=== PATIENT | male | born 1960 | race Caucasian/White ===

== ENCOUNTER 2017-10-20 13:42 | Emergency (ER) | payer MEDICAID, OTHER ==
[~2017-10-20] VITALS: Ht 165.1 cm; Wt 79.5 kg
[~2017-10-20 13:42] MED LIST: ALBU-136 IH; PRON INH
[2017-10-20 14:15] VITALS: BP 165/94
[2017-10-20] MEDS ORDERED: ALBUTEROL SULFATE/IPRATROPIU 3 ML SOL IH ONE (14:35)
--- NOTE | 2017-10-20 14:35 | NUR ---
PATIENT PRESENTS TO ED WITH C/O COUGH, SOB X 2 WKS WITH DIZZINESS, LIGHTHEADEDNESS; DENIES N/V/D; 9 DAYS AGO FELL AND HIT HIS HEAD ON A WOODEN FRAME BED LOSS CONSIOUSNESS FOR ABOUT 15 SECONDS PER PT ;Denies any medical hx;SKIN IS PINK/WARM/DRY; AAOX4 WITH EVEN AND STEADY GAIT; LUNGS CLEAR BL; HR EVEN AND REGULAR; PATIENT STATES PAIN OF 0/10 AT THIS TIME;PATIENT POSITIONED FOR COMFORT; ER MD MADE AWARE OF PT STATUS.
--- NOTE | 2017-10-20 14:50 | NUR ---
ADMITTING DX: COLD SYMPTOMS HX: DENIES SOB; ASTHMA AT A YOUNG AGE LOC AWAKE AND ALERT SKIN TONE PINL RESPONSIVE TO [facility] ATTENDANT VERBAL COMMANDS EDUCATION PROVIDE TO PATIENT WIH ACKNOWLEDGEMENT ON HHN THERAPY AND RESPIRATORY DRUG HHN THERAPY GIVEN ORDERED ENCOURAGED PATIENT FOR DEEP BREATHING DURING THERAPY TOLERATED WELL WITHOUT INCIDENT
--- NOTE | 2017-10-20 14:52 | NUR ---
RT AT BEDSIDE.
[2017-10-20] MEDS ORDERED: NACL 0.9% 1,000 ML IV ONE ×3 (15:00→17:35)
[2017-10-20] MEDS ORDERED: methylPREDNISolone SS 125 MG/2 ML VIAL IVP ONE (15:00)
[2017-10-20 15:17] LABS: BASOPHILS # (AUTO) 0.1 K/uL (0.00-0.22); BASOPHILS % (AUTO) 1.4 % (0.0-2.0); EOSINOPHILS # (AUTO) 0.1 K/uL (0-0.4); EOSINOPHILS % (AUTO) 1.3 % (0.0-4.0); HEMOGLOBIN 13.6 g/dL (12.0-18.0); LYMPHOCYTES # (AUTO) 2.5 K/uL (2.0-11.5); LYMPHOCYTES % (AUTO) 29.2 % (20.5-51.1); MEAN CORPUSCULAR HEMOGLOBIN 32 pg (27-31); MEAN CORPUSCULAR HGB CONC 33 g/dL (33-37); MEAN CORPUSCULAR VOLUME 95 fL (80-94); MONOCYTES # (AUTO) 0.5 K/uL (0.8-1.0); MONOCYTES % (AUTO) 6.1 % (1.7-9.3); NEUTROPHILS # (AUTO) 5.3 K/uL (1.8-7.7); PLATELET COUNT (AUTO) 181 K/uL (140-450); RED BLOOD CELL COUNT(AUTO) 4.31 MIL/uL (4.20-6.10); RED CELL DISTRIBUTION WIDTH 12.8 % (11.6-13.7); WHITE BLOOD COUNT (AUTO) 8.5 K/uL (4.8-10.8)
[2017-10-20 15:28] LABS: ANION GAP 15.2 (8-16); CARBON DIOXIDE 27.8 mmol/L (21-32); CREATININE 0.9 mg/dL (0.7-1.3)
[2017-10-20 15:36] LABS: ALBUMIN 3.5 g/dL (3.4-5.0); TOTAL BILIRUBIN 0.4 mg/dL (0.0-1.0)
--- NOTE | 2017-10-20 16:25 | NUR ---
JAY LOAIZA AT BEDSIDE.
[2017-10-20] MEDS ORDERED: cefTRIAXone 1,000 MG VIAL ONE (16:32)
--- NOTE | 2017-10-20 17:05 | NUR ---
Patient appears to be resting comfortably in bed. VSS.
[2017-10-20 17:59] VITALS: BP 156/78
--- NOTE | 2017-10-20 17:59 | NUR ---
Patient discharged with v/s stable. Written and verbal after care instructions given and explained. Patient alert, oriented and verbalized understanding of instructions. Ambulatory with steady gait. All questions addressed prior to discharge. ID band removed. Patient advised to follow up with PMD. Rx of Promethazine DM 6.25mg-15mg, Predinsone 20mg, Azithromycin 250mg, OVAR 80mcg/actuation, Albuterol given. Patient educated on indication of medication including possible reaction and side effects. Opportunity to ask questions provided and answered.
== END 2017-10-20 17:59 | disposition home or self-care (01) ==
LOC: MED 13:42
DX: H66.91 Otitis media, unspecified, right ear (principal); J98.01 Acute bronchospasm; E86.0 Dehydration; J45.909 Unspecified asthma, uncomplicated; I10 Essential (primary) hypertension
CPT/HCPCS: 36415; 70450; 71045; 80053; 85025; 87804; 94640; 96365; 96367; 99285; J0696; J2930; J7030; J7060; J7620

== ENCOUNTER 2018-10-14 17:06 | Inpatient (IN) | payer OTHER ==
[~2018-10-14] VITALS: Ht 177.8 cm; Wt 79.8 kg
[2018-10-14 17:11] VITALS: BP 148/96
--- NOTE | 2018-10-14 17:15 | NUR ---
57 YO MALE BIB SELF FOR CHEST PAIN ON INSPIRATION WITH COUGH, PT IS AA0X4, VSS AT THIS TIME, EVEN AND UNLABORED BREATHING AT THIS TIME, NO RADIATING ARM PAIN, PT STATES HE HAS BEEN MORE TIRED LATELY AND HAS BEEN EATING MUCH HE USE TO. PT BED DOWN, BEDRAIL UP X 1, ER AWARE AND NOTIFIED OF PT STATUS. PMH: ASTHMA, GASTROBYPASS 1995, BACK SURGERY 1993 RX; DENIES
[2018-10-14] MEDS ORDERED: ASPIRIN 81 MG TAB.CHEW PO ONE (17:30)
--- NOTE | 2018-10-14 17:30 | NUR ---
Patient being evaluated by physician at bedside.
--- NOTE | 2018-10-14 18:18 | NUR ---
rad at bedside
[2018-10-14 18:28] LABS: BASOPHILS # (AUTO) 0.1 K/uL (0.00-0.22); BASOPHILS % (AUTO) 0.6 % (0.0-2.0); EOSINOPHILS # (AUTO) 0.3 K/uL (0-0.4); EOSINOPHILS % (AUTO) 4.1 % (0.0-4.0); HEMATOCRIT 39.2 % (36-52); HEMOGLOBIN 12.8 g/dL (12.0-18.0); LYMPHOCYTES # (AUTO) 1.7 K/uL (2.0-11.5); MEAN CORPUSCULAR HEMOGLOBIN 32 pg (27-31); MEAN CORPUSCULAR HGB CONC 33 g/dL (33-37); MEAN CORPUSCULAR VOLUME 97.8 fL (80-94); MONOCYTES # (AUTO) 0.7 K/uL (0.8-1.0); MONOCYTES % (AUTO) 8.5 % (1.7-9.3); NEUTROPHILS # (AUTO) 5.5 K/uL (1.8-7.7); NEUTROPHILS % (AUTO) 66.8 % (42.2-75.2); PLATELET COUNT (AUTO) 333 K/uL (140-450); RED BLOOD CELL COUNT(AUTO) 4.01 MIL/uL (4.20-6.10); RED CELL DISTRIBUTION WIDTH 13.3 % (11.6-13.7); WHITE BLOOD COUNT (AUTO) 8.3 K/uL (4.8-10.8)
[2018-10-14 18:45] LABS: PROTHROMBIN TIME 10.3 secs (10.8-13.4)
[2018-10-14 18:48] LABS: ANION GAP 12.2 (8-16); POTASSIUM 4.2 mmol/L (3.5-5.1)
[2018-10-14 18:49] LABS: ALBUMIN 3.5 g/dL (3.4-5.0); CREATININE 0.9 mg/dL (0.7-1.3); TOTAL BILIRUBIN 0.5 mg/dL (0.0-1.0)
[2018-10-14 18:57] LABS: CREATINE KINASE MB 3.5 ng/mL (0-3.6)
--- NOTE | 2018-10-14 19:10 | NUR ---
PT BACK FROM CT
[2018-10-14] MEDS ORDERED: ASPIRIN 325 MG TAB PO ONE (19:15)
--- NOTE | 2018-10-14 19:20 | NUR ---
RECEIVED REPORT FROM AM NURSE. PT LAYING IN BED, SPO2 96% ON O2 2L NC, RR 18 EVEN AND UNLABORED. PT REPORTS 5/10 TOLERABLE CP AT THIS TIME. ALL NEEDS MET.
--- NOTE | 2018-10-14 20:15 | NUR ---
Pt report given to CATHY YING. Transfer of care at this time.
[2018-10-14] MEDS ORDERED: NACL 0.9% 1,000 ML IV SCH (20:58)
[2018-10-14] MEDS ORDERED: ONDANSETRON 4 MG/2 ML VIAL IM/IVP PRN (21:00)
[2018-10-14] MEDS ORDERED: DOCUSATE SODIUM 100 MG GELCAP PO PRN (21:00)
[2018-10-14] MEDS ORDERED: HYDROcodone/APAP 5/325 MG 1 TAB TAB PO PRN (21:00)
[2018-10-14] MEDS ORDERED: ACETAMINOPHEN 325 MG TAB PO PRN (21:00)
--- NOTE | 2018-10-14 21:50 | NUR ---
PER PET HOUSE SITTER AT [facility], PT NEEDS TO BE TRANSFERED TO HIGHER LEVEL OF CARE. SAFETY MEASURES IN PLACE. WILL CONTINUE TO MONITOR.
--- NOTE | 2018-10-14 21:58 | NUR ---
WAITING FOR CONFIRMATION TO PLACEMENT FOR PT. ER MD MADE AWARE. WILL CONTINUE TO MONITOR.
--- NOTE | 2018-10-14 22:02 | NUR ---
PT SITTING UP EATING DINNER. BED IN LOWER LOCKED POSITION; BEDRAILS UP X2.
--- NOTE | 2018-10-14 22:22 | NUR ---
RECEIVED REPORT FROM APPOINTMENT MANAGERCATHY GIBSON FOR CONTINUITY OF CARE. PT IS A/OX4 ON 2L O2 VIA NASAL CANNULA. PT IS ABLE TO MAKE NEEDS KNOWN, ABLE TO FOLLOW COMMANDS. PT AMBULATES WITH ASSIST AND SKIN IS INTACT. PT HAS A 20G IV TO RIGHT AC AND AN 18G IV TO LEFT AC, BOTH ASYMPTOMATIC AND INTACT. VITAL SIGNS WITHIN NORMAL LIMITS. PT STABLE, DENIES PAIN, NO SIGNS OF DISTRESS NOTED AT THIS TIME. PT POSITIONED FOR COMFORT. BED IN LOWEST POSITION, BED ALARM ON. CALL LIGHT WITHIN REACH, WILL CONTINUE TO MONITOR.
--- NOTE | 2018-10-14 22:22 | NUR ---
Patient will be admitted to care of Dr. Barrera. Admited to Tele. Pt transported to floor via gurny by RN and EMT Will go to room 107B. Belongings list completed. Report to Yoly MORGAN.
[2018-10-14] MEDS ORDERED: hePARIN / DEXT 5% PREMIX 250 ML IV SCH (22:25)
[2018-10-14] MEDS ORDERED: HEPARIN PER PHARMACY MC PRN (22:25)
[2018-10-14] MEDS ORDERED: NITROGLYCERIN 0.4 MG TAB SL PRN (22:40)
[2018-10-14 23:00] VITALS: BP 140/94
--- NOTE | 2018-10-14 23:35 | NUR ---
HEPARIN DRIP STARTED WITH CATHY MEJIA WITNESS. PT TOLERATING WELL.
[2018-10-14] MEDS: hePARIN / DEXT 5% PREMIX 250 ML IV SCH (23:36)
--- NOTE | 2018-10-14 23:50 | NUR ---
IV KEPT BEEPING AND IT WAS THE HEPARIN IV. STARTED NEW 20G IV TO RIGHT FOREARM AND CONNECTED THERE. PT TOLERATING WELL.
[2018-10-15] VITALS (11 sets, daily range): BP systolic 95–152; BP diastolic 60–109
--- NOTE | 2018-10-15 | NUR ---
VITAL SIGNS WITHIN NORMAL LIMITS. PT BREATHING LESS LABORED. PT STABLE, DENIES PAIN, NO SIGNS OF DISTRESS NOTED AT THIS TIME. PT POSITIONED FOR COMFORT. BED IN LOWEST POSITION, BED ALARM ON. CALL LIGHT WITHIN REACH, WILL CONTINUE TO MONITOR.
[2018-10-15] MEDS: ZOLPIDEM 5 MG TAB PO PRN ×2 (00:09→21:52)
--- NOTE | 2018-10-15 01:20 | NUR ---
STAT EKG completed and results read to Dr. Nye. Patient is sweating appears to be diaphoretic and respiratory rate is elevated. Patients heart rate is elevated and saturation is 98 spo2 on 2L nasal canula. RN is notified and we will continue to monitor patient closely.
--- NOTE | 2018-10-15 01:25 | NUR ---
PT PULLED OUT IV WITH HEPARIN INFUSING. CONNECTED TO 18G ON LEFT FOREARM AND CONTINUED.
--- NOTE | 2018-10-15 01:35 | NUR ---
ASKED DR FONSECA TO CHECK OUT PT BECAUSE PT IS PALE, DIAPHORETIC, SOB, WITH RETRACTIONS, AND TACHYCARDIC. DR FONSECA WILL SEE IN A FEW MINUTES. RUBY LARA IS AT BEDSIDE DOING EKG.
--- NOTE | 2018-10-15 01:45 | NUR ---
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 DR FONSECA AWARE AND TRIED TO ASK HIM ABOUT IT BUT THAT IS ALL PT KNOWS.
[2018-10-15] MEDS: MORPHINE SULFATE 4 MG/ML SYR IVP PRN (01:52)
[2018-10-15] MEDS: FUROSEMIDE 40 MG/4 ML VIAL IVP SCH ×3 (01:53→21:21)
--- NOTE | 2018-10-15 02:05 | NUR ---
SPOKE TO DR FONSECA AGAIN ABOUT NEW EKG BEING IN CHARGE AND ABOUT TRANSFERRING PT TO ICU. HE SAID HE WILL ORDER ANOTHER LASIX DOSE AND TO JUST KEEP AN EYE ON HIM. WILL KEEP MONITORING PT CLOSELY.
[2018-10-15] MEDS ORDERED: FUROSEMIDE 40 MG/4 ML VIAL IVP SCH (02:15)
[2018-10-15] MEDS ORDERED: PNEUMOCOCCAL VACCINE 23 MCG/0.5 ML VIAL IMVAC SCH (02:55)
[2018-10-15] MEDS ORDERED: LABETALOL 100 MG/20 ML VIAL IV SCH (03:35)
[2018-10-15] MEDS ORDERED: LABETALOL 100 MG/20 ML VIAL ONE (04:42)
--- NOTE | 2018-10-15 04:45 | NUR ---
BP 152/109 HR 104, AND PT SLIGHTLY LESS DIAPHORETIC, DR FONSECA SAID TO GIVE ORDERED LABETALOL. ADMINISTERED LABETALOL OVER 2 MINUTES AND FLUSHED IV SLOWLY. PT VERBALIZED UNDERSTANDING OF MEDICATION AND TOLERATED WELL.
--- NOTE | 2018-10-15 05:00 | NUR ---
SPOKE TO DR FONSECA ABOUT PT V/S BP 100/62, HEART RATE 47-67 WITH SKIPPED BEATS ON MONITOR. DR ASKED IF PT IS AROUSABLE, PT IS AROUSABLE BUT LETHARGIC AND GOES BACK TO SLEEP QUICKLY, DR SAID THAT'S KIND OF HOW HE'S BEEN ALL NIGHT AND TO JUST KEEP MONITORING. DR CAME TO CHECK MONITOR AND PT. WILL CONTINUE TO MONITOR PT CLOSELY.
--- NOTE | 2018-10-15 05:09 | NUR ---
DR FONSECA SAID TO HOLD ALL MORNING BP MEDS UNTIL BP IS BACK TO NORMAL/PT'S BASELINE SINCE ADMITTED. WILL ENDORSE TO DAY SHIFT RN.
[2018-10-15 06:18] LABS: BASOPHILS % (AUTO) 0.5 % (0.0-2.0); EOSINOPHILS # (AUTO) 0.4 K/uL (0-0.4); EOSINOPHILS % (AUTO) 4.8 % (0.0-4.0); HEMATOCRIT 36.4 % (36-52); HEMOGLOBIN 11.6 g/dL (12.0-18.0); LYMPHOCYTES # (AUTO) 1.7 K/uL (2.0-11.5); LYMPHOCYTES % (AUTO) 20.7 % (20.5-51.1); MEAN CORPUSCULAR HEMOGLOBIN 32 pg (27-31); MEAN CORPUSCULAR HGB CONC 32 g/dL (33-37); MEAN CORPUSCULAR VOLUME 98.9 fL (80-94); MONOCYTES # (AUTO) 0.7 K/uL (0.8-1.0); MONOCYTES % (AUTO) 8.3 % (1.7-9.3); NEUTROPHILS # (AUTO) 5.5 K/uL (1.8-7.7); NEUTROPHILS % (AUTO) 65.7 % (42.2-75.2); PLATELET COUNT (AUTO) 321 K/uL (140-450); RED BLOOD CELL COUNT(AUTO) 3.68 MIL/uL (4.20-6.10); RED CELL DISTRIBUTION WIDTH 13.3 % (11.6-13.7); WHITE BLOOD COUNT (AUTO) 8.4 K/uL (4.8-10.8)
--- NOTE | 2018-10-15 07:05 | NUR ---
ENDORSED PT TO DAY SHIFT CATHY MULLEN FOR CONTINUITY OF CARE. PT IN STABLE CONDITION.
--- NOTE | 2018-10-15 07:06 | NUR ---
RECEIVED REPORT FROM PRODUCTION MINER NURSE. PATIENT SITTING IN BED. NO DISTRESS NOTED. DENIES ANY CHEST PAIN AT THIS TIME. RESPIRATIONS EVEN, UNLABORED, ON O2 4L/MIN VIA NC. AAOX4, CALM, COOPERATIVE, SKIN COLOR APPROPRIATE TO ETHNICITY, WARM TO TOUCH. SKIN IS INTACT. IV SITES INTACT, PATENT. HEPARIN DRIP CURRENTLY INFUSING AT 14 ML/HR (1400 UNITS/HR) PER PHARMACY DOSING. SAFETY MEASURES IN PLACE, CALL LIGHT WITHIN REACH. WILL CONTINUE TO MONITOR.
--- NOTE | 2018-10-15 07:28 | NUR ---
STUDIO COORDINATOR ASKED ME TO CALL ICU FOR BED. CALLED [facility] NURSE TO LET HIM KNOW ABOUT STAT TRANSFER ORDER, HE SAID HE WILL CALL [facility] NURSE AND I CAN CALL ICU. CALLED ICU AND SPOKE TO TOSIN, TOLD HER WHAT MATT SAID AND SHE TOLD ME PT CAN HAVE ICU BED 5 WHEN ART GILDER NURSE GETS HERE. INFORMED STUDIO COORDINATOR'S BILLY, AND CATHY MULLEN.
--- NOTE | 2018-10-15 08:25 | NUR ---
PATIENT HAS BEEN SCREENED AND CATEGORIZED MODERATE NUTRITION RISK. PATIENT WILL BE SEEN WITHIN 3-5 DAYS OF ADMISSION. 10/17/18 10/19/[address]
--- NOTE | 2018-10-15 08:32 | NUR ---
ICU ADMISSION FROM TELEMETRY. PATIENT TRANSFERRED TO ICU BED, HOOKED TO CARDIAC MONITORS AND OXYGEN 4L/MIN VIA NASAL CANNULA. INTRODUCED TO COMPUTER SCIENCE PROFESSOR, CALL RAZA WITHIN REACH, BED AT LOW POSITION, HEAD UP 30 DEGREES, EXPECTED PROCEDURES, MEDICATIONS AND SIDE EFFECTS EXPLAINED
[2018-10-15 08:40] LABS: MAGNESIUM 1.9 mg/dL (1.8-2.4); PHOSPHORUS 4.5 mg/dL (2.5-4.9)
[2018-10-15 08:47] LABS: ANION GAP 14.3 (8-16); CARBON DIOXIDE 28.2 mmol/L (21-32); POTASSIUM 3.5 mmol/L (3.5-5.1)
[2018-10-15 08:48] LABS: CREATININE 0.9 mg/dL (0.7-1.3)
--- NOTE | 2018-10-15 08:54 | NUR ---
PATIENT IN BED WITH HEAD 30 DEGREES UP. ALERT ORIENTEDX4, NO COMPLAINTS OF PAIN, ON NASAL CANULA O2 4L/MIN. SO2 97%, EXERTIONAL DYSPNEA NOTED,CLEAR BREATH SOUNDS ON ALL LUNG MARCIAL, RR 26CPM, SINUS RHYTHM 76BPM ON MONITOR, SOFT ABDOMEN, NORMAL BOWEL SOUNDS, SKIN INTACT, WITH PERIPHERAL LINES GAUGE 18 AT LEFT AC HEPARIN 1,400 UNITS/HR INFUSING, GAUGE 20 RIGHT AC SALINE LOCKED-SITES ARE ASYMPTOMATIC,
--- NOTE | 2018-10-15 08:56 | NUR ---
TRANSFERRED PATIENT TO ICU SAFELY. GAVE REPORT TO ICU NURSE FOR CONTINUITY OF CARE. PATIENT IN STABLE CONDITION.
--- NOTE | 2018-10-15 09:00 | NUR ---
BEDSIDE REPORT RECEIVED FROM RECORD CENTER COORDINATOR
--- NOTE | 2018-10-15 09:05 | NUR ---
PER LOSS PREVENTION SUPERVISOR PAZ PATIENT'S PTT 57.7-NO CHANGE IN HEPARIN DRIP PER PROTOCOL. DR. CROCKER MADE AWARE
--- NOTE | 2018-10-15 09:20 | NUR ---
PATIENT'S BLOOD PRESSURE 120/80 WILL GIVE SCHEDULED LASIX IV, WILL HOLD FOR NOW THE ANTIHYPERTENSIVES AND RECHECK BP IN AN HOUR AND WILL GIVE IF BP DID NOT DROP FROM BASELINE
[2018-10-15] MEDS: METOPROLOL 25 MG TAB PO SCH ×2 (10:00→21:00)
[2018-10-15] MEDS: LISINOPRIL 5 MG TAB PO SCH (10:00)
--- NOTE | 2018-10-15 10:28 | NUR ---
TELEPHONED RESIDENT EXT. [id number] CROCKER INFORMED THIS RN HOLDING 9 AM BLOOD PRESSURE MEDICATIONS BP CURRENTLY 90s-OK TO HOLD PER PHYSICIAN. ALSO INFORMED PATIENT ON ASPIRIN AND HEPARIN DIP.
--- NOTE | 2018-10-15 10:45 | NUR ---
PATIENT REFUSED INVENTORY OF HIS BELONGINGS . HE HAS 2 CLEAR PLASTIC BAGS THAT HAS CLOTHES INSIDE. ACCORDING TO PATIENT HE HAS "WALLET INSIDE" BUT SAID "NO" WHEN INFORMED VALUABLES NEED TO BE SUBMITTED TO [facility]. PER PATIENT "IT HAPPENED TO ME BEFORE THAT MY WALLET WAS SENT TO [facility] AND GOT LOST". RN WILL ICU CN ALSO AT BEDSIDE AND AWARE
[2018-10-15] MEDS ORDERED: ALBUTEROL SULFATE/IPRATROPIU 3 ML SOL IH PRN (10:55)
[2018-10-15] MEDS: ASPIRIN 81 MG TAB.CHEW PO SCH (10:58)
[2018-10-15] MEDS ORDERED: POTASSIUM CHLORIDE 10 MEQ TABER PO SCH (11:00)
--- NOTE | 2018-10-15 11:10 | NUR ---
10/14/18 0800 POC REVIEWED, CONTINUE WITH CURRENT POC. SALIMA
--- NOTE | 2018-10-15 11:10 | NUR ---
DR. LAMA HERE FOR ROUNDS
--- NOTE | 2018-10-15 11:25 | NUR ---
MEDICAL RECORDS MANAGER AT BEDSIDE FOR ECHO
[2018-10-15] MEDS ORDERED: MAG SULF 2000 MG/WATER PREMIX 50 ML IV SCH (11:30)
--- NOTE | 2018-10-15 13:04 | NUR ---
RECEIVED PTT CRITICAL 55.2, PER PROTOCOL, NO CHANGE. WILL CONTINUE CURRENT RATE.
--- NOTE | 2018-10-15 13:40 | NUR ---
informed RT Bill of order for incentive spirometer
--- NOTE | 2018-10-15 14:12 | NUR ---
DR. CROCKER HERE. MADE AWARE PATIENT IS VERBALIZING "FEELING ANXIOUS" "WANTS TO SLEEP" INFORMED PHYSICIAN OF CURRENT BP 95/60 AND SUGGESTED FOR P.O. ATIVAN. PER DR. CROCKER OK TO GIVE PRN ATIVAN 1 MG IV
[2018-10-15] MEDS: LORazepam 2 MG/ML VIAL IM/IVP PRN ×2 (14:14→19:27)
--- NOTE | 2018-10-15 15:00 | NUR ---
NOTED PATIENT SLEEPING NOW AFTER THE ATIVAN. WILL CONTINUE TO MONITOR
--- NOTE | 2018-10-15 17:00 | NUR ---
PATIENT SAT IN CHAIR PER HIS REQUEST. PATIENT WAS ABLE TO DO IT INDEPENDENTLY AND RN ON STANDBY ASSIST. PATIENT ABLE TO WASH HIMSELF
[2018-10-15 17:13] LABS: APPEARANCE,URINE CLEAR (CLEAR); COLOR,URINE YELLOW (YELLOW); PH,URINE 5.5 (5.0-9.0)
[2018-10-15 17:14] LABS: BILIRUBIN,URINE NEGATIVE (NEGATIVE); BLOOD, URINE 1+ (NEGATIVE); LEUKOCYTE ESTERASE ,URINE NEGATIVE (NEGATIVE); NITRITE, URINE NEGATIVE (NEGATIVE); RBC,URINE 3-10 (FEW) /HPF (0-5); UGLUCOSE NEGATIVE (NEGATIVE); WBC,URINE 0-5 (RARE) /HPF (0-5)
--- NOTE | 2018-10-15 17:30 | NUR ---
PATIENT BACK TO BED, RN ON STANDBY ASSIST. PATIENT VERBALIZED HE IS "SLEEPY". KEPT HEAD OF BED UP 30 DEGREES, BED LOW POSITION, CALL RAZA WITHIN REACH. PATIENT SO2 100% O2 DOWN TO 3L/MIN VIA NASAL CANNULA. PATIENT ABLE TO DO INCENTIVE SPIROMETRY REACHING 1,000
[2018-10-15 18:18] LABS: BARBITURATE, URINE NEGATIVE ng/ml (NEG <=200); BENZODIAZEPINE, URINE NEGATIVE ng/mL (NEG <=200); CANNABINOID, URINE POSITIVE ng/mL (NEG <=50); COCAINE, URINE NEGATIVE ng/mL (NEG <=300); OPIATE, URINE NEGATIVE ng/mL (NEG <=2000); PHENCYCLIDINE SCREEN,URINE NEGATIVE ng/mL (NEG <=25)
[2018-10-15] MEDS: hePARIN / DEXT 5% PREMIX 250 ML IV SCH (18:37)
--- NOTE | 2018-10-15 19:03 | NUR ---
REPORT GIVEN TO NIGHT RN
--- NOTE | 2018-10-15 19:15 | NUR ---
RECEIVED BEDSIDE REPORT FROM MORNING NURSE. PATIENT AAOX4, ABLE TO FOLLOW COMMANDS. ON 4L/M VIA NC, NO ACUTE RESPIRATORY DISTRESS NOTED. DENIES ANY PAIN AT THIS TIME. SR WITH BBB ON THE MONITOR. PERIPHERAL LINE TO LEFT FOREARM WITH HEPARIN DRIP 1400 UNITS/HR. SKIN IS WARM TO TOUCH AND INTACT. HOB ELEVATED, BED IN LOW POSITION, CALL LIGHT WITHIN REACH. WILL CONTINUE TO MONITOR
--- NOTE | 2018-10-15 19:30 | NUR ---
ADMINISTERED PRN ATIVAN ORDERED DUE TO RESTLESSNESS. DENIES CHEST PAIN AT THIS TIME. NO ACUTE DISTRESS NOTED.
[2018-10-15] MEDS ORDERED: SIMVASTATIN 20 MG TAB PO SCH ×2 (21:00)
--- NOTE | 2018-10-15 21:00 | NUR ---
HEPARIN SUBQ STARTED PER DR Natalee GONZALEZ'S ORDER; HEPARIN DRIP DC'D AT 2030
--- NOTE | 2018-10-15 21:30 | NUR ---
ADMINISTERED SCHEDULED MEDICATIONS ORDERED. TOLERATED WELL. NO ACUTE DISTRESS NOTED. O2 SAT ABOVE 95% WITH O2 3L/M VIA NC. DENIES CHEST PAIN AT THIS TIME. WILL CONTINUE TO MONITOR.
--- NOTE | 2018-10-15 22:00 | NUR ---
PATIENT REQUEST SLEEPING MEDICATIONS DUE TO UNABLE TO SLEEP AT THIS TIME. ADMINISTERED PRN AMBIEN ORDERED. DENIES PAIN. WILL CONTINUE TO MONITOR.
[2018-10-16] VITALS: BP 132/91
--- NOTE | 2018-10-16 | NUR ---
PATIENT IN ASLEEP AT THIS TIME, AROUSABLE TO VOICE. DENIES PAIN. NO ACUTE DISTRESS NOTED. WILL CONTINUE TO MONITOR.
[2018-10-16 02:00] VITALS: BP 138/91
--- NOTE | 2018-10-16 02:00 | NUR ---
NO ACUTE DISTRESS NOTED. NO PAIN NOTED. WILL CONTINUE TO MONITOR.
[2018-10-16 04:00] VITALS: BP 140/79
[2018-10-16] MEDS: MORPHINE SULFATE 4 MG/ML SYR IVP PRN (04:38)
--- NOTE | 2018-10-16 04:40 | NUR ---
PATIENT COMPLAINT ABOUT GENERALIZED BODY PAIN 04/14, ADMINISTERED PRN MORPHINE ORDERED. WILL CONTINUE TO MONITOR.
--- NOTE | 2018-10-16 05:50 | NUR ---
PATIENT IN ASLEEP AT THIS TIME. NO ACUTE DISTRESS NOTED. VSS WITH O2 3L/M VIA NC. WILL CONTINUE TO MONITOR.
[2018-10-16 05:58] LABS: BASOPHILS # (AUTO) 0.1 K/uL (0.00-0.22); BASOPHILS % (AUTO) 0.7 % (0.0-2.0); EOSINOPHILS # (AUTO) 0.5 K/uL (0-0.4); EOSINOPHILS % (AUTO) 5.9 % (0.0-4.0); HEMATOCRIT 37.2 % (36-52); HEMOGLOBIN 11.9 g/dL (12.0-18.0); LYMPHOCYTES # (AUTO) 1.7 K/uL (2.0-11.5); LYMPHOCYTES % (AUTO) 18.1 % (20.5-51.1); MEAN CORPUSCULAR HEMOGLOBIN 31 pg (27-31); MEAN CORPUSCULAR HGB CONC 32 g/dL (33-37); MEAN CORPUSCULAR VOLUME 97.6 fL (80-94); MONOCYTES # (AUTO) 0.9 K/uL (0.8-1.0); MONOCYTES % (AUTO) 9.8 % (1.7-9.3); NEUTROPHILS % (AUTO) 65.5 % (42.2-75.2); PLATELET COUNT (AUTO) 324 K/uL (140-450); RED BLOOD CELL COUNT(AUTO) 3.81 MIL/uL (4.20-6.10); RED CELL DISTRIBUTION WIDTH 13.3 % (11.6-13.7); WHITE BLOOD COUNT (AUTO) 9.2 K/uL (4.8-10.8)
[2018-10-16 06:00] VITALS: BP 127/73
[2018-10-16 07:18] LABS: ANION GAP 12.8 (8-16); CREATININE 0.8 mg/dL (0.7-1.3); POTASSIUM 3.8 mmol/L (3.5-5.1)
[2018-10-16 08:00] VITALS: BP 122/76
[2018-10-16 08:05] LABS: MAGNESIUM 2.3 mg/dL (1.8-2.4)
[2018-10-16] MEDS: ASPIRIN 81 MG TAB.CHEW PO SCH (08:51)
[2018-10-16] MEDS: FUROSEMIDE 40 MG/4 ML VIAL IVP SCH (08:51)
[2018-10-16] MEDS: LISINOPRIL 5 MG TAB PO SCH (08:51)
[2018-10-16] MEDS: METOPROLOL 25 MG TAB PO SCH (08:51)
[2018-10-16 09:02] LABS: TRANSFERRIN 228 mg/dL (200-370)
--- NOTE | 2018-10-16 09:20 | NUR ---
BEDSIDE REPORT GIVEN TO EV MORGAN. TRANSFERRED PT TO 104 A. ALL PERSONAL BELONGINGS WITH PT.
--- NOTE | 2018-10-16 09:25 | NUR ---
RECEIVED PT FROM ICU NURSE, JOLIE, PT IS AWAKE AND ALERT WITH IV LINE ON THE RT AND LEFT FA BOT G. 22 ON SALINE LOCK, PT DENIES PAIN AND NO SOB NOTED. PT IS ON TELE MONITORING. WILL CONTINUE TO MONITOR PT.
[2018-10-16 09:30] VITALS: BP 128/75
[2018-10-16] MEDS ORDERED: PROBIOTIC SCREEN 1 EA MISC MC PRN (09:30)
--- NOTE | 2018-10-16 11:48 | NUR ---
CAME TO PT'S ROOM AND FOUND OUT THAT PT ELOPED, CALLED MARLYS FROM [facility] AND REPORTED THE INCIDENT, CHARGE NURSE, INGRID INFORMED.
[2018-10-16 12:17] LABS: FERRITIN 133 ng/mL (30-400); FOLIC ACID > 20.00 ng/mL (>3.0)
--- NOTE | 2018-10-16 12:45 | NUR ---
CHARGE NURSE INGRID SAID THAT THE PT CAME BACK AND IS IN THE FRONT LOBBY.
--- NOTE | 2018-10-16 12:55 | NUR ---
PT IS SEATED IN THE FRONT LOBBY AND DR. CROCKER IS BESIDE AND TALKING TO PT. PT IS ALERT AND RESPONDING APPROPRIATELY TO MD. IV LINES WERE REMOVED AND PT WAS TRANSPORTED TO ER VIA WHEELCHAIR PER DR. CROCKER'S ORDER.
[2018-10-16] MEDS ORDERED: LORazepam 2 MG/ML VIAL IVP SCH (16:45)
== END 2018-10-16 11:48 | disposition left against medical advice (07) | DRG 194 ==
LOC: MED 17:06 → MTU 21:01 → MIC 10-15 09:36 → MTU 10-16 09:15
PROVIDERS: ADMIT General Practice; ATTEND General Practice
DX: I11.0 Hypertensive heart disease with heart failure (principal); I21.4 Non-ST elevation (NSTEMI) myocardial infarction; J96.01 Acute respiratory failure with hypoxia; I50.43 Acute on chronic combined systolic (congestive) and diastolic (congestive) heart failure; I24.9 Acute ischemic heart disease, unspecified; J45.909 Unspecified asthma, uncomplicated; D53.9 Nutritional anemia, unspecified; F15.10 Other stimulant abuse, uncomplicated; F11.10 Opioid abuse, uncomplicated; I44.7 Left bundle-branch block, unspecified; Z53.21 Procedure and treatment not carried out due to patient leaving prior to being seen by health care provider; Z79.899 Other long term (current) drug therapy; Z98.84 Bariatric surgery status; Z79.51 Long term (current) use of inhaled steroids; Z91.19 Patient's noncompliance with other medical treatment and regimen
CPT/HCPCS: 36415; 71045; 71275; 80048; 80053; 80305; 81001; 82150; 82550; 82553; 82607; 82728; 82746; 83036; 83540; 83690; 83735; 83880; 84100; 84439; 84443; 84484; 85025; 85045; 85610; 85730; 87081; 87804; 93005; 94640; 99285; J1644; J1940; J2060; J2270; J3475; J3490; J7030; J7620; Q9967

== ENCOUNTER 2018-10-16 13:31 | Inpatient (IN) | payer OTHER ==
[~2018-10-16] VITALS: Ht 167.6 cm; Wt 72.1 kg
[2018-10-16 13:40] VITALS: BP 100/51
[2018-10-16] MEDS ORDERED: HYDROcodone/APAP 7.5/325 MG 1 TAB PO PRN (14:45)
[2018-10-16] MEDS ORDERED: ACETAMINOPHEN 325 MG TAB PO PRN (14:45)
[2018-10-16] MEDS ORDERED: ONDANSETRON 4 MG/2 ML VIAL IVP PRN (14:45)
[2018-10-16 15:08] LABS: BASOPHILS % (AUTO) 0.5 % (0.0-2.0); EOSINOPHILS # (AUTO) 0.3 K/uL (0-0.4); EOSINOPHILS % (AUTO) 3.6 % (0.0-4.0); HEMATOCRIT 37.2 % (36-52); LYMPHOCYTES # (AUTO) 1.3 K/uL (2.0-11.5); LYMPHOCYTES % (AUTO) 13.7 % (20.5-51.1); MEAN CORPUSCULAR HEMOGLOBIN 32 pg (27-31); MEAN CORPUSCULAR HGB CONC 32 g/dL (33-37); MEAN CORPUSCULAR VOLUME 98.4 fL (80-94); MONOCYTES # (AUTO) 0.8 K/uL (0.8-1.0); MONOCYTES % (AUTO) 7.8 % (1.7-9.3); NEUTROPHILS # (AUTO) 7.2 K/uL (1.8-7.7); NEUTROPHILS % (AUTO) 74.4 % (42.2-75.2); PLATELET COUNT (AUTO) 319 K/uL (140-450); RED BLOOD CELL COUNT(AUTO) 3.78 MIL/uL (4.20-6.10); RED CELL DISTRIBUTION WIDTH 13.1 % (11.6-13.7); WHITE BLOOD COUNT (AUTO) 9.7 K/uL (4.8-10.8)
[2018-10-16] MEDS ORDERED: ALBUTEROL SULFATE/IPRATROPIU 3 ML SOL IH PRN (15:25)
[2018-10-16] MEDS ORDERED: NITROGLYCERIN 0.4 MG TAB SL PRN (15:25)
[2018-10-16 15:26] LABS: PROTHROMBIN TIME 10.4 secs (10.8-13.4)
[2018-10-16 15:55] VITALS: BP 111/66
[2018-10-16 16:30] LABS: MAGNESIUM 2.3 mg/dL (1.8-2.4)
[2018-10-16] MEDS ORDERED: LORazepam 2 MG/ML VIAL IM/IVP SCH (16:45)
[2018-10-16] MEDS ORDERED: FUROSEMIDE 40 MG/4 ML VIAL IVP SCH (17:00)
[2018-10-16 20:00] VITALS: BP 125/74
[2018-10-16 20:25] LABS: APPEARANCE,URINE CLEAR (CLEAR); BILIRUBIN,URINE NEGATIVE (NEGATIVE); BLOOD, URINE NEGATIVE (NEGATIVE); COLOR,URINE YELLOW (YELLOW); LEUKOCYTE ESTERASE ,URINE NEGATIVE (NEGATIVE); NITRITE, URINE NEGATIVE (NEGATIVE); PH,URINE 5.5 (5.0-9.0); UGLUCOSE NEGATIVE (NEGATIVE)
[2018-10-16 20:27] LABS: BARBITURATE, URINE NEGATIVE ng/ml (NEG <=200); BENZODIAZEPINE, URINE NEGATIVE ng/mL (NEG <=200); CANNABINOID, URINE NEGATIVE ng/mL (NEG <=50); COCAINE, URINE NEGATIVE ng/mL (NEG <=300); OPIATE, URINE NEGATIVE ng/mL (NEG <=2000); PHENCYCLIDINE SCREEN,URINE NEGATIVE ng/mL (NEG <=25)
[2018-10-16] MEDS: DOCUSATE SODIUM 100 MG GELCAP PO SCH (20:54)
[2018-10-16] MEDS: SIMVASTATIN 40 MG TAB PO SCH (20:54)
[2018-10-16] MEDS: METOPROLOL 25 MG TAB PO SCH (20:55)
[2018-10-16] MEDS: ZOLPIDEM 10 MG TAB PO PRN (22:37)
[2018-10-16] MEDS: LORazepam 2 MG/ML VIAL IVP SCH ×2 (23:00→23:05)
[2018-10-16] MEDS ORDERED: LORazepam 2 MG/ML VIAL ONE (23:11)
[2018-10-17] VITALS: BP 116/73
[2018-10-17] MEDS ORDERED: hePARIN / DEXT 5% PREMIX 250 ML IV SCH (00:40)
[2018-10-17] MEDS ORDERED: HEPARIN PER PHARMACY MC PRN (00:40)
[2018-10-17] MEDS ORDERED: diphenhydrAMINE 50 MG/ML VIAL IVP SCH (00:45)
[2018-10-17] MEDS: hePARIN / DEXT 5% PREMIX 250 ML IV SCH ×3 (01:49→17:03)
[2018-10-17 04:00] VITALS: BP 133/88
[2018-10-17 07:28] LABS: BASOPHILS # (AUTO) 0.1 K/uL (0.00-0.22); BASOPHILS % (AUTO) 0.7 % (0.0-2.0); EOSINOPHILS # (AUTO) 0.4 K/uL (0-0.4); EOSINOPHILS % (AUTO) 4.1 % (0.0-4.0); HEMATOCRIT 35.5 % (36-52); HEMOGLOBIN 11.5 g/dL (12.0-18.0); LYMPHOCYTES # (AUTO) 1.7 K/uL (2.0-11.5); LYMPHOCYTES % (AUTO) 19.8 % (20.5-51.1); MEAN CORPUSCULAR HEMOGLOBIN 32 pg (27-31); MEAN CORPUSCULAR HGB CONC 32 g/dL (33-37); MEAN CORPUSCULAR VOLUME 97.7 fL (80-94); MONOCYTES # (AUTO) 0.7 K/uL (0.8-1.0); MONOCYTES % (AUTO) 8.1 % (1.7-9.3); NEUTROPHILS # (AUTO) 5.8 K/uL (1.8-7.7); NEUTROPHILS % (AUTO) 67.3 % (42.2-75.2); PLATELET COUNT (AUTO) 328 K/uL (140-450); RED BLOOD CELL COUNT(AUTO) 3.63 MIL/uL (4.20-6.10); WHITE BLOOD COUNT (AUTO) 8.6 K/uL (4.8-10.8)
[2018-10-17 08:00] VITALS: BP 117/74
[2018-10-17] MEDS: LISINOPRIL 5 MG TAB PO SCH (08:24)
[2018-10-17] MEDS: DOCUSATE SODIUM 100 MG GELCAP PO SCH ×2 (08:24→20:41)
[2018-10-17] MEDS: METOPROLOL 25 MG TAB PO SCH ×2 (08:24→20:40)
[2018-10-17] MEDS: NICOTINE TRANSD SYS 7 MG/24 HR PATCH TD SCH (08:26)
[2018-10-17 08:58] LABS: ALBUMIN 3.2 g/dL (3.4-5.0); ANION GAP 13.5 (8-16); CREATININE 0.9 mg/dL (0.7-1.3); MAGNESIUM 2.1 mg/dL (1.8-2.4); PHOSPHORUS 3.7 mg/dL (2.5-4.9); POTASSIUM 3.5 mmol/L (3.5-5.1); TOTAL BILIRUBIN 0.5 mg/dL (0.0-1.0)
[2018-10-17] MEDS ORDERED: ASPIRIN 81 MG TAB.CHEW PO SCH (09:00)
[2018-10-17] MEDS ORDERED: FUROSEMIDE 40 MG/4 ML VIAL IVP SCH (09:00)
[2018-10-17 12:00] VITALS: BP 115/68
[2018-10-17] MEDS: LORazepam 1 MG TAB PO PRN (12:00)
[2018-10-17 16:00] VITALS: BP 101/75
[2018-10-17 20:00] VITALS: BP 119/74
[2018-10-17] MEDS: SIMVASTATIN 40 MG TAB PO SCH (20:40)
[2018-10-17] MEDS ORDERED: SERTRALINE 50 MG TAB PO SCH (21:00)
[2018-10-17] MEDS: ZOLPIDEM 10 MG TAB PO PRN (22:15)
[2018-10-18] VITALS: BP 102/61
[2018-10-18] MEDS: LORazepam 1 MG TAB PO PRN (02:22)
[2018-10-18 04:00] VITALS: BP 121/82
[2018-10-18] MEDS ORDERED: diphenhydrAMINE 50 MG/ML VIAL IVP SCH (04:30)
[2018-10-18 06:52] LABS: BASOPHILS % (AUTO) 0.7 % (0.0-2.0); EOSINOPHILS # (AUTO) 0.3 K/uL (0-0.4); EOSINOPHILS % (AUTO) 4.6 % (0.0-4.0); HEMATOCRIT 35.1 % (36-52); HEMOGLOBIN 11.6 g/dL (12.0-18.0); LYMPHOCYTES # (AUTO) 1.8 K/uL (2.0-11.5); LYMPHOCYTES % (AUTO) 24.6 % (20.5-51.1); MEAN CORPUSCULAR HEMOGLOBIN 32 pg (27-31); MEAN CORPUSCULAR HGB CONC 33 g/dL (33-37); MEAN CORPUSCULAR VOLUME 97.1 fL (80-94); MONOCYTES # (AUTO) 0.6 K/uL (0.8-1.0); MONOCYTES % (AUTO) 8.6 % (1.7-9.3); NEUTROPHILS # (AUTO) 4.6 K/uL (1.8-7.7); NEUTROPHILS % (AUTO) 61.5 % (42.2-75.2); PLATELET COUNT (AUTO) 308 K/uL (140-450); RED BLOOD CELL COUNT(AUTO) 3.62 MIL/uL (4.20-6.10); RED CELL DISTRIBUTION WIDTH 13.2 % (11.6-13.7); WHITE BLOOD COUNT (AUTO) 7.5 K/uL (4.8-10.8)
[2018-10-18 07:17] LABS: ANION GAP 11.9 (8-16); CARBON DIOXIDE 27.5 mmol/L (21-32); CREATININE 0.9 mg/dL (0.7-1.3); POTASSIUM 3.4 mmol/L (3.5-5.1)
[2018-10-18 07:30] LABS: MAGNESIUM 2.2 mg/dL (1.8-2.4)
[2018-10-18 08:00] VITALS: BP 126/79
[2018-10-18] MEDS ORDERED: POTASSIUM CHLORIDE 10 MEQ TABER PO SCH (08:30)
[2018-10-18] MEDS: DOCUSATE SODIUM 100 MG GELCAP PO SCH (08:37)
[2018-10-18] MEDS: LISINOPRIL 5 MG TAB PO SCH (08:39)
[2018-10-18] MEDS: NICOTINE TRANSD SYS 7 MG/24 HR PATCH TD SCH (08:40)
[2018-10-18] MEDS ORDERED: METOPROLOL SUCCINATE 50 MG TABER PO SCH (09:00)
[2018-10-18] MEDS ORDERED: FUROSEMIDE 40 MG TAB PO SCH (09:00)
[2018-10-18] MEDS ORDERED: SIMV40TA5 PO (09:10)
[2018-10-18] MEDS ORDERED: ASPI81CT95 PO (09:10)
[2018-10-18] MEDS ORDERED: LORA-476 PO (09:10)
[2018-10-18] MEDS ORDERED: FURO40TA9 PO (09:10)
[2018-10-18] MEDS ORDERED: LISI-424 PO (09:10)
[2018-10-18] MEDS ORDERED: METO50TE2 PO (09:10)
[2018-10-18] MEDS ORDERED: PNEUMOCOCCAL VACCINE 23 MCG/0.5 ML VIAL IMVAC SCH (09:35)
[2018-10-18] MEDS ORDERED: INFLUENZA VIRUS VACCINE QUAD 0.5 ML SYR IMVAC PRN (09:35)
== END 2018-10-18 09:55 | disposition home or self-care (01) | DRG 190 ==
LOC: MED 13:31 → MTU 14:48
PROVIDERS: ADMIT General Practice; ATTEND General Practice
DX: I21.9 Acute myocardial infarction, unspecified (principal); I50.43 Acute on chronic combined systolic (congestive) and diastolic (congestive) heart failure; I27.21 Secondary pulmonary arterial hypertension; I42.0 Dilated cardiomyopathy; F17.210 Nicotine dependence, cigarettes, uncomplicated; J45.909 Unspecified asthma, uncomplicated; I35.0 Nonrheumatic aortic (valve) stenosis; F15.10 Other stimulant abuse, uncomplicated; F11.10 Opioid abuse, uncomplicated; F41.9 Anxiety disorder, unspecified; D53.9 Nutritional anemia, unspecified; Z79.899 Other long term (current) drug therapy; Z23 Encounter for immunization
CPT/HCPCS: 36415; 71045; 80048; 80053; 80305; 81003; 82150; 83690; 83735; 83880; 84100; 84484; 85025; 85610; 85730; 87081; 90658; 93005; 94640; 99285; J1200; J1644; J1940; J2060; J7620